=== PATIENT | male | born 1985 | race Caucasian/White ===

== ENCOUNTER 2020-10-29 05:36 | Emergency (ER) | payer OTHER ==
[2020-10-29 05:57] VITALS: BP 126/76; PULSE 81; TEMP 97.7; BMI 36.0
[2020-10-29] MEDS ORDERED: KETOROLAC TROMETHAMINE 30 MG/1 ML VIAL IVPUSH ONE (07:34)
[2020-10-29] MEDS ORDERED: KETOROLAC TROMETHAMINE 30 MG/1 ML VIAL ONE (07:43)
[2020-10-29 09:22] LABS: BASO % 0.3 % (0-2.0); HEMATOCRIT 42.5 % (35.4-49); HEMOGLOBIN 13.9 GM/dL (11.7-16.9); LYMPH % 19.1 % (8-40); MCH 27.5 pg (25.7-33.7); MCHC 32.8 g/dl (32.0-35.9); MONO % 6.8 % (3.8-10.2); NEUT % 69.8 % (42.8-82.8); PLATELET COUNT 257 K/MM3 (134-434); RBC 5.06 M/mm3 (4.00-5.60); RDW 13.6 % (11.9-15.9); WHITE BLOOD COUNT 8.7 K/mm3 (4.0-10.0)
[2020-10-29 09:45] LABS: EPI CELLS 19 /uL (0-25.1); HYALINE CASTS 0 /uL (0-3.1); POTASSIUM 4.9 mmol/L (3.5-5.1); URINE APPEARANCE CLEAR; URINE BACTERIA 465 /uL (0-1359); URINE BILIRUBIN NEGATIVE (NEGATIVE); URINE COLOR YELLOW; URINE GLUCOSE (UA) NEGATIVE (NEGATIVE); URINE KETONE NEGATIVE (NEGATIVE); URINE LEUK ESTERASE TRACE (NEGATIVE); URINE NITRITE NEGATIVE (NEGATIVE); URINE PROTEIN NEGATIVE (NEGATIVE); URINE RBC 4 /uL (0-23.9); URINE UROBILINOGEN 0.2 mg/dL (0.2-1.0); URINE WBC 53 /uL (0-25.8)
[2020-10-29 09:49] LABS: BLOOD UREA NITROGEN 15.7 mg/dL (7-18); CALCIUM 10.1 mg/dL (8.5-10.1)
[2020-10-29 09:50] LABS: ALBUMIN 4.2 g/dl (3.4-5.0)
[2020-10-29 09:52] LABS: CREATININE 1.2 mg/dL (0.55-1.3)
[2020-10-29 09:53] LABS: BILIRUBIN,TOTAL 0.6 mg/dL (0.2-1)
[2020-10-29 09:54] LABS: TOT PROT 8.2 g/dl (6.4-8.2)
== END 2020-10-29 12:17 | disposition home or self-care (01) ==
LOC: JER 05:36
PROC: 3E0333Z Introduction of Anti-inflammatory into Peripheral Vein, Percutaneous Approach (ICD-10-PCS; principal; 2020-10-29)
DX: R10.12 Left upper quadrant pain (principal)
CPT/HCPCS: 36415; 74177-TC; 80053; 81003; 83690; 85025; 99285-25; Q9967

== ENCOUNTER 2023-11-21 10:54 | Emergency (ER) | payer OTHER ==
[2023-11-21 11:04] VITALS: BMI 37.8
[2023-11-21] MEDS ORDERED: FAMOTIDINE 20 MG/50 ML IVPB 20 MG/50 ML MG IVPB ONE (11:58)
[2023-11-21] MEDS ORDERED: MAG HYDROX/AL HYDROX/SIMETH 30 ML UNIT-DOSE CUP PO ONE (11:58)
[2023-11-21] MEDS ORDERED: ACETAMINOPHEN 1000 MG/100 ML BAG IVPB ONE ×2 (11:58→16:00)
[2023-11-21] MEDS ORDERED: SODIUM CHLORIDE 0.9% 500 ML INFUS.BAG IV ONE (11:58)
[2023-11-21] MEDS ORDERED: METOCLOPRAMIDE HCL INJECTION 10 MG/2 ML VIAL IVPB ONE (12:00)
[2023-11-21] MEDS ORDERED: METOCLOPRAMIDE HCL INJECTION 10 MG/2 ML VIAL ONE (12:05)
[2023-11-21] MEDS ORDERED: MAG HYDROX/AL HYDROX/SIMETH 30 ML UNIT-DOSE CUP ONE (12:05)
[2023-11-21] MEDS ORDERED: FAMOTIDINE 10 MG/ML VIAL IVPB ONE (12:06)
[2023-11-21 12:17] LABS: URINE APPEARANCE CLEAR; URINE BILIRUBIN NEGATIVE (NEGATIVE); URINE COLOR YELLOW; URINE GLUCOSE (UA) NEGATIVE (NEGATIVE); URINE KETONE 15 mg/dl (NEGATIVE); URINE NITRITE NEGATIVE (NEGATIVE); URINE PROTEIN 1+ (NEGATIVE); URINE UROBILINOGEN 0.2 mg/dL (0.2-1.0)
[2023-11-21 12:18] LABS: URINE LEUK ESTERASE NEGATIVE (NEGATIVE); URINE RBC 0-3 /uL (0-23.9); URINE WBC 0-3 /uL (0-25.8)
[2023-11-21 12:25] LABS: BASO % 0.2 % (0-2.0); EOS % 0.7 % (0-4.5); HEMATOCRIT 45.1 % (35.4-49); HEMOGLOBIN 14.5 GM/dL (11.7-16.9); LYMPH % 7.6 % (8-40); MCH 26.8 pg (25.7-33.7); MCHC 32.1 g/dl (32.0-35.9); MEAN CELL VOLUME 83.5 fl (80-96); MONO % 3.8 % (3.8-10.2); NEUT % 87.7 % (42.8-82.8); PLATELET COUNT 299 10^3/uL (134-434); RBC 5.41 M/mm3 (4.00-5.60); RDW 14.4 % (11.9-15.9); WHITE BLOOD COUNT 10.3 K/mm3 (4.0-10.0)
[2023-11-21 12:45] LABS: POTASSIUM 4.6 mmol/L (3.5-5.1)
[2023-11-21 12:47] LABS: ALBUMIN 4.3 g/dl (3.4-5.0); BLOOD UREA NITROGEN 16.9 mg/dL (7-18); CALCIUM 9.3 mg/dL (8.5-10.1); MAGNESIUM 1.9 mg/dL (1.8-2.4)
[2023-11-21 12:50] LABS: CREATININE 0.9 mg/dL (0.55-1.3)
[2023-11-21 12:52] LABS: BILIRUBIN,TOTAL 0.2 mg/dL (0.2-1); TOT PROT 8.4 g/dl (6.4-8.2)
[2023-11-21] MEDS ORDERED: SODIUM CHLORIDE 1,000 ML IV STA (13:30)
[2023-11-21 13:32] LABS: LACTIC ACID 2.5 mmol/L (0.4-2.0)
[2023-11-21] MEDS ORDERED: ACETAMINOPHEN INJECTION 100 ML IVPB ONE (16:18)
[2023-11-21 17:45] VITALS: BP 126/71; PULSE 99; RESP 20; TEMP 99.3
== END 2023-11-21 17:49 | disposition home or self-care (01) ==
LOC: JER 10:54
PROC: 3E033GC Introduction of Other Therapeutic Substance into Peripheral Vein, Percutaneous Approach (ICD-10-PCS; principal; 2023-11-21)
PROC: 3E033NZ Introduction of Analgesics, Hypnotics, Sedatives into Peripheral Vein, Percutaneous Approach (ICD-10-PCS; 2023-11-21)
PROC: 3E033GC Introduction of Other Therapeutic Substance into Peripheral Vein, Percutaneous Approach (ICD-10-PCS; 2023-11-21)
PROC: 3E0337Z Introduction of Electrolytic and Water Balance Substance into Peripheral Vein, Percutaneous Approach (ICD-10-PCS; 2023-11-21)
DX: R11.2 Nausea with vomiting, unspecified (principal); R10.13 Epigastric pain; R00.0 Tachycardia, unspecified; R42 Dizziness and giddiness; R51.9 Headache, unspecified; R53.1 Weakness; Z20.822 Contact with and (suspected) exposure to COVID-19
CPT/HCPCS: 0241U-QW; 36415; 71046-TC-FY; 76705-TC; 80053; 81003; 83605; 83690; 83735; 84484; 85025; 93005; 93010; 99285-25